=== PATIENT | female | born 1990 | race Caucasian/White ===

== ENCOUNTER 2016-07-25 23:52 | Emergency (ER) | payer OTHER ==
--- NOTE | 2016-07-26 01:12 | ED ORDER SUMMARY ---
..... Patient: JULI REN [facility] VisitID: [id number] [place] [address] 25y, F Registration Date/Time: 07/25/2016 ORDER SHEET Weight: 56.6 kg (stated) Allergies: No Known Drug Allergy GENERAL ORDERS: UA-Culture if indicated Urgent (00:08 07/26/2016 JDeElena R.N. verbal order read back to Elsa Aparicio) (Ack 0:10 AMcQuoid ER Tech1) (0:16 JDeElena R.N.) Urine Urgent (00:08 07/26/2016 JDeElena R.N. verbal order read back to Elsa Aparicio) (Ack 0:10 AMcQuoid ER Tech1) (0:16 JDeElena R.N.) MEDICATION ORDERS: Pyridium PO 100 mg (NOW) (01:08 07/26/2016 Elsa Aparicio) (Ack 1:08 HSoule) (1:34 HSoule) Keflex PO 500 mg (NOW) (01:08 07/26/2016 Elsa Aparicio) (Ack 1:09 HSoule) (1:34 HSoule) IV FLUIDS: ORDER SHEET NOTES: [Electronically signed by Shira Sheriff (02:12 07/26/2016)] [Electronically signed by Avni Marcial Dr. (04:37 07/28/2016)] [Electronically locked/signed by Shira Sheriff (02:12 07/26/2016)]
--- NOTE | 2016-07-26 01:12 | ED CLINICAL REPORT ---
Clinical Report - Physicians/Mid Levels [facility] [address] [place] [address] 07/25/2016 23:51 Patient: JULI REN Time Seen: 0100. Arrived- By private vehicle. Historian- patient. HISTORY OF PRESENT ILLNESS Chief Complaint: DYSURIA. This started past few weeks and still present. It was gradual in onset and has been waxing/waning but is not gone now. The symptoms are described as moderate. The patient has had pain with urination and urgency of urination. The patient has had urinary frequency. Similar symptoms previously: None. Recent medical care: Not recently seen/assessed. REVIEW OF SYSTEMS No skin rash. All systems otherwise negative, except as recorded above. PAST HISTORY See nurses notes. SOCIAL HISTORY Smoker- current status unknown. History of occasional drug use: marijuana. No alcohol use. No recent travel. Is a local resident. ADDITIONAL NOTES The nursing notes have been reviewed. PHYSICAL EXAM Vital Signs: 07/25/2016 23:59 BP: 135/78. HR: 91. RR: 16. O2 saturation: 97%. Temp: 98.2 F. Pain level now: 6/10. Blood pressure normal. Oxygen saturation normal. Appearance: Alert. Oriented X3. No acute distress. HEENT: Normal external inspection. ENT: Pharynx normal. Neck: Neck supple. CVS: Heart sounds normal. Respiratory: No respiratory distress. Breath sounds normal. Chest nontender. Abdomen: Soft and nontender. Bowel sounds normal. No organomegaly. No mass. : External inspection normal. Speculum exam normal. Bimanual exam normal. Skin: Skin warm and dry. Normal skin color. No rash. Normal skin turgor. Extremities: Extremities nontender. No lower extremity edema. LABS, X-RAYS, AND EKG Laboratory Tests: UA-Culture if indicated: (ANASTACIA: 07/26/2016 00:00) ( MsgRcvd 07/26/2016 00:23) Final results Test Result Flag Units (Reference) URINE COLOR YELLOW URINE APPEARANCE CLOUDY URINE GLUCOSE NEGATIVE (NEGATIVE) URINE BILIRUBIN NEGATIVE (NEGATIVE) URINE KETONE NEGATIVE (NEGATIVE) URINE SPECIFIC GRAVITY 1.025 (1.010-1.030) URINE PH 7.0 (5.0-8.0) URINE PROTEIN 1+ (NEGATIVE) URINE UROBILINOGEN 0.2 EU/dL (0.2-1.0) URINE NITRITE NEGATIVE (NEGATIVE) URINE BLOOD TRACE-INTACT (NEGATIVE) URINE LEUK ESTERASE POSITIVE (NEGATIVE) URINE RBC rbc/hpf (0-1) UNABLE TO ENUMERATE, ALL ALMONTE PACKED WITH WHITE BLOODCELLS URINE WBC >100 wbc/hpf (0-1) URINE EPITHELIAL CELLS 3-5 EPI/hpf (0-5) URINE BACTERIA MANY (4+) (NONE SEEN) URINE COMMENT CULTURE INDICATED URINE CULTURES ARE SET-UP BASED ON THE FOLLOWING CRITERIA:POSITIVE NITRITEPOSITIVE LEUKOCYTE ESTERASEGREATER THAN 10 WHITE BLOOD CELLSMODERATE (2+) OR GREATER BACTERIA Urine: (ANASTACIA: 07/26/2016 00:00) ( [facility] 00:17) Final results Test Result Flag Units (Reference) URINE NEGATIVE Culture, Urine: (NAASTACIA: 07/26/2016 00:00) ( [facility] [place] 07/27/[place] 10:11) IP Test Result Flag Units (Reference) CULTURE, URINE DATE: 07/27/16 PRELIM REPORT: PRELIMINARY REPORT #1 -- GNR QUANTITATIVE URINE GROWTH: GREATER THAN 100,000 CFU/mL ID AND SENS TO FOLLOW: IDENTIFICATION AND SENSITIVITY TO FOLLOW . PROGRESS AND PROCEDURES Course of Care: The patient is a pleasant 25-year-old female presenting for evaluation of dysuria. At this time differential diagnosis is likely urinary tract infection. Urine test as well as urinalysis has been ordered. Patient will likely require antibiotics. Patient is agreeable to treatment plan. Offers a pain medication of beengiven however patient declines at this time. Patient's new contact number The bases report was [place] for significant urine tract infection. At about accident providedpar systemic involvement at this time. Patient is a good outpatient candidate. I discussed patient workup. Emergency department as well as diagnosis, home care, follow-up, and return precautions were all questions have been answered. The patient expressed understanding of these instructions and was agreeable to them. Disposition: Discharged. Condition: good. CLINICAL IMPRESSION 07/25/2016 23:59 BP: 135/78. HR: 91. RR: 16. O2 saturation: 97%. Temp: 98.2 F. Pain level now: 6/10. Oxygen saturation normal. Acute urinary tract infection. INSTRUCTIONS Warnings: GENERAL WARNINGS: Return or contact your physician immediately if your condition worsens or changes unexpectedly, if not improving as expected, or if other problems arise. Specifically return if pain, vomiting, bleeding, breathing difficulty or fever. Your Current Medications: CONTINUE TAKING THE FOLLOWING MEDICATIONS: None*. Prescription Medications: Pyridium 100 mg: take 1 orally every 8 hours for 3 days as needed for urinary problems. Dispense ten (10). No refill. Substitution is permissible. Cephalexin 500 mg: take 1 capsule orally every 8 hours for 5 days. No refill. (disp 15 caps) OTC Medications: Motrin (available over the counter): take according to label instructions. Follow-up: Return to the emergency department as needed. Follow up with your doctor in three days. Reason for referral: recheck today's concerns. Summary of care provided to patient via paper. Screening today revealed the patient's blood pressure to be in the normal range. The patient should follow up with a primary care provider for blood pressure management. Understanding of the discharge instructions verbalized by patient. (Electronically signed by Avni Marcial Dr. 07/28/2016 4:37)
--- NOTE | 2016-07-26 01:12 | ED ORDER SUMMARY ---
..... Patient: JULI REN OrderSheet [facility] VisitID: [id number] [place] [address] 25y, F Registration Date/Time: 07/25/2016 ORDER SHEET Weight: 56.6 kg (stated) Allergies: No Known Drug Allergy GENERAL ORDERS: UA-Culture if indicated Urgent (00:08 07/26/2016 JDeElena R.N. verbal order read back to Elsa Aparicio) (Ack 0:10 AMcQuoid ER Tech1) (0:16 JDeElena R.N.) Urine Urgent (00:08 07/26/2016 JDeElena R.N. verbal order read back to Elsa Aparicio) (Ack 0:10 AMcQuoid ER Tech1) (0:16 JDeElena R.N.) MEDICATION ORDERS: Pyridium PO 100 mg (NOW) (01:08 07/26/2016 Elsa Aparicio) (Ack 1:08 HSoule) (1:34 HSoule) Keflex PO 500 mg (NOW) (01:08 07/26/2016 Elsa Aparicio) (Ack 1:09 HSoule) (1:34 HSoule) IV FLUIDS: ORDER SHEET NOTES: [Electronically signed by Shira Sheriff (02:12 07/26/2016)] [Electronically signed by Avni Marcial Dr. (04:37 07/28/2016)] [Electronically locked/signed by Shira Sheriff (02:12 07/26/2016)]
--- NOTE | 2016-07-26 01:12 | ED NURSING NOTES ---
Clinical Report - Nurses [facility] [address] [place] [address] 07/25/2016 23:51 Patient: JULI REN TRIAGE Triage time 23:59. Acuity: LEVEL 4. Chief Complaint: URGENCY and (Juli reports she was seen and tx for a UTI about 1 month ago but it has gotten worse; she says her symptoms started out as urgency but now it schaefer and urgency is worse. Unable to recall recent antbx.). Alert. No acute distress. SEPSIS SCREEN: Sepsis Screen: negative. Negative (no infection suspected/documented). --00:07 Jose Matson R.N. 23:59 07/25/16. BP: 135/78 (regular adult cuff) taken on the left arm, via an automated monitor, while sitting. HR: 91 (normal rate). RR: 16 (regular, unlabored and normal). O2 saturation: 97% on room air. Temp: 98.2 F. Pain level now: 10/11. --00:07 Jose Matson R.N. Weight: 56.6 kg stated. Height/Length: 64 inches Per Patient. BMI: 21.4. --00:04 Jose Matson R.N. Medications None. --00:07 Jose Matson R.N. Medication/allergy information source: the patient. --00:07 Jose Matson R.N. Allergies No Known Drug Allergy. --00:07 Jose Matson R.N. History Arrived by private vehicle. Historian: patient. Accompanied by spouse. Primary physician (None). The patient has had difficulty with urination. No flank pain, fever, abdominal pain, diarrhea or nausea. No vomiting or hematuria. PAST MEDICAL HX: Last normal menstrual period- Inserted last August. Uses an intrauterine device. Denies current . SOCIAL HX: Current every day heavy tobacco smoker (cigarette)- less than 1 pack per day. History of occasional drug use: marijuana. Recently used drugs yesterday. No alcohol use. She has not traveled outside the [place] The patient was not exposed to MRSA. ABUSE ASSESSMENT: Abuse assessment: The patient was asked "Do you feel safe in your home?" and "Has anyone hurt you or threatened to hurt you?". No report of abuse. SELF HARM ASSESSMENT: A self harm assessment was performed. The patient answered "no" to the question "Do you have thoughts of harming or killing yourself?" and "Have you recently had thoughts about harming or killing others?". FALL RISK ASSESSMENT: Fall risk assessment completed. No fall risk identified. NUTRITIONAL RISK ASSESSMENT: The nutritional risk assessment revealed no deficiencies. FUNCTIONAL ASSESSMENT: Functional assessment: no impairments noted. LEARNING NEEDS ASSESSMENT: The learning needs assessment revealed no barriers. SKIN INTEGRITY ASSESSMENT: Skin integrity risk assessment completed. No skin integrity risk identified. --00:07 Jose Matson R.N. PROBLEMS: UTI - Urinary Tract Infection. . --00:07 Jose Matson R.N. Assessment GENERAL / NEURO / PSYCH: Alert. Oriented X 4. Appears in no acute distress. Nakita Coma Scale: 15- eyes open spontaneously (4); best verbal response- oriented x 4 (5); best motor response- obeys commands (6). Patient appears calm and cooperative. RESPIRATORY: Respirations not labored. SKIN: Skin is warm and dry. --00:07 Jose Matson R.N. Interventions ID band on patient. To treatment room. --00:07 Jose Matson R.N. PHYSICAL ASSESSMENT Ambulatory to room. GENERAL / NEURO / PSYCH: Alert. Oriented X 4. Appears in no acute distress. RESPIRATORY: No respiratory distress. Respirations not labored. Breath sounds within normal limits. CVS: Heart sounds within normal limits. Pulses: right radial 2+ and left radial 2+. Capillary refill less than 2 seconds. GI / : Abdomen soft and nontender. Bowel sounds within normal limits. SKIN: Skin is warm and dry. --00:17 Jose Matson R.N. NURSING PROGRESS NOTES The initial plan of care for this patient has been created This plan of care was discussed with the patient. Reassurance given to the patient. Two patient identifiers checked. Call light placed in reach. Side rails up x 1. Bed placed in lowest position. Brakes of bed on. Patient ready for evaluation- ED physician notified. --00:08 Jose Matson R.N. Patient ID band checked for patient name and birthdate: patient confirmed. Instructions provided to collect clean catch urine and patient verbalized understanding. Clean catch urine collected with return of varun-colored clear urine; sample sent to lab for urinalysis and HCG. Specimen labeled in the presence of the patient. --00:08 Jose Matson R.N. 01:34 07/26/2016 Pyridium (Phenazopyridine HCl) PO Tablets 100 mg given. Allergies verified and confirmed 5 rights. --01:34 Shira Sheriff 01:34 07/26/2016 Keflex (Cephalexin) PO Capsules 500 mg given. Allergies verified and confirmed 5 rights. --:34 Shira Sheriff. DISPOSITION / DISCHARGE 01:36 07/26/16. Condition at departure: stable. The goals identified in the patient's plan of care were met. No learning barriers present. Discharge instructions provided and reviewed with the patient. Reviewed medication(s) side effects, precautions, dosing and course information. Prescription(s) given to the patient. Reviewed need for increased fluid intake. Patient verbalized understanding. Written instructions provided in Yoruba. ( Follow up with PCP in three days. Increase fluids. Return if symptoms worsen. Patient has no questions or concerns at this time.). The patient was discharged by the physician. She was discharged home and accompanied by material handling equipment stevedore. She left the Emergency Department ambulatory and via private vehicle. Punchboard Stuffer driving. FALL RISK ASSESSMENT: Fall risk assessment completed. No fall risk identified. --01:36 Shira Sheriff 01:34 07/26/16. BP: 111/56. HR: 98. RR: 20. O2 saturation: 98% on room air. Temp: 97.7 F (oral). Pain level now: 0/10. --01:36 Shira Sheriff. Locked/Released at 07/26/2016 2:12 by Shira Sheriff,
--- NOTE | 2016-07-26 01:12 | ED CLINICAL REPORT ---
Clinical Report - Physicians/Mid Levels [facility] [address] [place] [address] 07/25/2016 23:51 Patient: JULI REN Time Seen: 0100. Arrived- By private vehicle. Historian- patient. HISTORY OF PRESENT ILLNESS Chief Complaint: DYSURIA. This started past few weeks and still present. It was gradual in onset and has been waxing/waning but is not gone now. The symptoms are described as moderate. The patient has had pain with urination and urgency of urination. The patient has had urinary frequency. Similar symptoms previously: None. Recent medical care: Not recently seen/assessed. REVIEW OF SYSTEMS No skin rash. All systems otherwise negative, except as recorded above. PAST HISTORY See nurses notes. SOCIAL HISTORY Smoker- current status unknown. History of occasional drug use: marijuana. No alcohol use. No recent travel. Is a local resident. ADDITIONAL NOTES The nursing notes have been reviewed. PHYSICAL EXAM Vital Signs: 07/25/2016 23:59 BP: 135/78. HR: 91. RR: 16. O2 saturation: 97%. Temp: 98.2 F. Pain level now: 6/10. Blood pressure normal. Oxygen saturation normal. Appearance: Alert. Oriented X3. No acute distress. HEENT: Normal external inspection. ENT: Pharynx normal. Neck: Neck supple. CVS: Heart sounds normal. Respiratory: No respiratory distress. Breath sounds normal. Chest nontender. Abdomen: Soft and nontender. Bowel sounds normal. No organomegaly. No mass. : External inspection normal. Speculum exam normal. Bimanual exam normal. Skin: Skin warm and dry. Normal skin color. No rash. Normal skin turgor. Extremities: Extremities nontender. No lower extremity edema. LABS, X-RAYS, AND EKG Laboratory Tests: UA-Culture if indicated: (ANASTACIA: 07/26/2016 00:00) ( MsgRcvd 07/26/2016 00:23) Final results Test Result Flag Units (Reference) URINE COLOR YELLOW URINE APPEARANCE CLOUDY URINE GLUCOSE NEGATIVE (NEGATIVE) URINE BILIRUBIN NEGATIVE (NEGATIVE) URINE KETONE NEGATIVE (NEGATIVE) URINE SPECIFIC GRAVITY 1.025 (1.010-1.030) URINE PH 7.0 (5.0-8.0) URINE PROTEIN 1+ (NEGATIVE) URINE UROBILINOGEN 0.2 EU/dL (0.2-1.0) URINE NITRITE NEGATIVE (NEGATIVE) URINE BLOOD TRACE-INTACT (NEGATIVE) URINE LEUK ESTERASE POSITIVE (NEGATIVE) URINE RBC rbc/hpf (0-1) UNABLE TO ENUMERATE, ALL ALMONTE PACKED WITH WHITE BLOODCELLS URINE WBC >100 wbc/hpf (0-1) URINE EPITHELIAL CELLS 3-5 EPI/hpf (0-5) URINE BACTERIA MANY (4+) (NONE SEEN) URINE COMMENT CULTURE INDICATED URINE CULTURES ARE SET-UP BASED ON THE FOLLOWING CRITERIA:POSITIVE NITRITEPOSITIVE LEUKOCYTE ESTERASEGREATER THAN 10 WHITE BLOOD CELLSMODERATE (2+) OR GREATER BACTERIA Urine: (ANASTACIA: 07/26/2016 00:00) ( [facility] [place]:17) Final results Test Result Flag Units (Reference) URINE NEGATIVE Culture, Urine: (ANASTACIA: 07/26/2016 00:00) ( [facility] [place]:11[place] IP Test Result Flag Units (Reference) CULTURE, URINE DATE: 07/27/16 PRELIM REPORT: PRELIMINARY REPORT #1 -- GNR QUANTITATIVE URINE GROWTH: GREATER THAN 100,000 CFU/mL ID AND SENS TO FOLLOW: IDENTIFICATION AND SENSITIVITY TO FOLLOW . PROGRESS AND PROCEDURES Course of Care: The patient is a pleasant 25-year-old female presenting for evaluation of dysuria. At this time differential diagnosis is likely urinary tract infection. Urine test as well as urinalysis has been ordered. Patient will likely require antibiotics. Patient is agreeable to treatment plan. Offers a pain medication of beengiven however patient declines at this time. Patient's new contact number The bases report was [place] for significant urine tract infection. At about accident providedpar systemic involvement at this time. Patient is a good outpatient candidate. I discussed patient workup. Emergency department as well as diagnosis, home care, follow-up, and return precautions were all questions have been answered. The patient expressed understanding of these instructions and was agreeable to them. Disposition: Discharged. Condition: good. CLINICAL IMPRESSION 07/25/2016 23:59 BP: 135/78. HR: 91. RR: 16. O2 saturation: 97%. Temp: 98.2 F. Pain level now: 6/10. Oxygen saturation normal. Acute urinary tract infection. INSTRUCTIONS Warnings: GENERAL WARNINGS: Return or contact your physician immediately if your condition worsens or changes unexpectedly, if not improving as expected, or if other problems arise. Specifically return if pain, vomiting, bleeding, breathing difficulty or fever. Your Current Medications: CONTINUE TAKING THE FOLLOWING MEDICATIONS: None*. Prescription Medications: Pyridium 100 mg: take 1 orally every 8 hours for 3 days as needed for urinary problems. Dispense ten (10). No refill. Substitution is permissible. Cephalexin 500 mg: take 1 capsule orally every 8 hours for 5 days. No refill. (disp 15 caps) OTC Medications: Motrin (available over the counter): take according to label instructions. Follow-up: Return to the emergency department as needed. Follow up with your doctor in three days. Reason for referral: recheck today's concerns. Summary of care provided to patient via paper. Screening today revealed the patient's blood pressure to be in the normal range. The patient should follow up with a primary care provider for blood pressure management. Understanding of the discharge instructions verbalized by patient. (Electronically signed by Avni Marcial Dr. 07/28/2016 4:37)
--- NOTE | 2016-07-28 04:37 | ED MAR SUMMARY ---
..... Medication Administration Record [facility] [address] [place] [place] [address] Patient: JULI REN Visit ID: [id number] 25y, F Weight: 56.6 kg Height/Length: 64 in BMI: 21.4 ALLERGIES: No Known Drug Allergy Given 07/26/2016 Shira Sheriff, Medication Administered: PYRIDIUM [PO] (PHENAZOPYRIDINE HCL), Dose: 100 mg Tablets PO. Medication Ordered: Pyridium PO 100 mg (NOW). Given 07/26/2016 Shira Sheriff, Medication Administered: KEFLEX [PO] (CEPHALEXIN), Dose: 500 mg Capsules PO. Medication Ordered: Keflex PO 500 mg (NOW).
--- NOTE | 2016-07-28 04:37 | ED DISCHARGE INSTRUCTIONS ---
Patient: JULI REN General Instructions [facility] VisitID: [id number] [place] [address] 25y, F Registration Date/Time: 07/25/2016 07/25/2016 23:59 BP: 135/78. HR: 91. RR: 16. O2 saturation: 97%. Temp: 98.2 F. Pain level now: 6/10. Oxygen saturation normal. Acute urinary tract infection. INSTRUCTIONS Warnings: GENERAL WARNINGS: Return or contact your physician immediately if your condition worsens or changes unexpectedly, if not improving as expected, or if other problems arise. Specifically return if pain, vomiting, bleeding, breathing difficulty or fever. Your Current Medications: CONTINUE TAKING THE FOLLOWING MEDICATIONS: None*. Prescription Medications: Pyridium 100 mg: take 1 orally every 8 hours for 3 days as needed for urinary problems. Dispense ten (10). No refill. Substitution is permissible. Cephalexin 500 mg: take 1 capsule orally every 8 hours for 5 days. No refill. (disp 15 caps) OTC Medications: Motrin (available over the counter): take according to label instructions. Follow-up: Return to the emergency department as needed. Follow up with your doctor in three days. Reason for referral: recheck today's concerns. Summary of care provided to patient via paper. Screening today revealed the patient's blood pressure to be in the normal range. The patient should follow up with a primary care provider for blood pressure management. Understanding of the discharge instructions verbalized by patient. ADDITIONAL INFORMATION Bladder Infection,Female (Adult) A bladder infection ("cystitis" or "UTI") usually causes a constant urge to urinate and a burning when passing urine. Urine may be cloudy, smelly or dark. There may be pain in the lower abdomen. A bladder infection occurs when bacteria from the vaginal area enter the bladder opening (urethra). This can occur from sexual intercourse, wearing tight clothing, dehydration and other factors. Home Care: Drink lots of fluids (at least 6-8 glasses a day, unless you must restrict fluids for other medical reasons). This will force the medicine into your urinary system and flush the bacteria out of your body. Avoid sexual intercourse until your symptoms are gone. Avoid caffeine, alcohol and spicy foods. These can irritate the bladder. A bladder infection is treated with antibiotics. You may also be given Pyridium (generic = phenazopyridine) to reduce the burning sensation. This medicine will cause your urine to become a bright orange color. The orange urine may stain clothing. You may wear a pad or panty-liner to protect clothing. Preventing Future Infections: Always wipe from front to back after a bowel movement. Keep the genital area clean and dry. Drink plenty of fluids each day to avoid dehydration. Both sexual partners should wash before intercourse. Urinate right after intercourse to flush out the bladder. Wear cotton underwear and cotton-lined panty hose; avoid tight-fitting pants. If you are on control pills and are having frequent bladder infections, discuss with your doctor. Follow Up: Return to this facility or see your doctor if ALL symptoms are not gone after three days of treatment. Get Prompt Medical Attention if any of the following occur: Fever of 100.4F (38C) or higher, or as directed by your healthcare provider No improvement by the third day of treatment Increasing back or abdominal pain Repeated vomiting; unable to keep medicine down Weakness, dizziness or fainting Vaginal discharge Pain, redness or swelling in the labia (outer vaginal area) Phenazopyridine Hydrochloride Oral tablet What is this medicine? PHENAZOPYRIDINE (fen az oh PEER i torsten) is a pain reliever. It is used to stop the pain, burning, or discomfort caused by infection or irritation of the urinary tract. This medicine is not an antibiotic. It will not cure a urinary tract infection. How should I use this medicine? Take this medicine by mouth with a glass of water. Follow the directions on the prescription label. Take after meals. Take your doses at regular intervals. Do not take your medicine more often than directed. Do not skip doses or stop your medicine early even if you feel better. Do not stop taking except on your doctor's advice. Talk to your night shift regarding the use of this medicine in children. Special care may be needed. What side effects may I notice from receiving this medicine? Side effects that you should report to your doctor or health care assistant as soon as possible: allergic reactions like skin rash, itching or hives, swelling of the face, lips, or tongue blue or purple color of the skin difficulty breathing fever less urine unusual bleeding, bruising unusual tired, weak vomiting yellowing of the eyes or skin Side effects that usually do not require medical attention (report to your doctor or health care assistant if they continue or are bothersome): dark urine headache stomach upset What may interact with this medicine? Interactions are not expected. What if I miss a dose? If you miss a dose, take it as soon as you can. If it is almost time for your next dose, take only that dose. Do not take double or extra doses. Where should I keep my medicine? Keep out of the reach of children. Store at room temperature between 15 and 30 degrees C (59 and 86 degrees F). Protect from light and moisture. Throw away any unused medicine after the expiration date. What should I tell my health care provider before I take this medicine? They need to know if you have any of these conditions: vzniurq-0-zelkpoovf dehydrogenase (G6PD) deficiency kidney disease an unusual or allergic reaction to phenazopyridine, other medicines, foods, dyes, or preservatives or trying to get breast-feeding What should I watch for while using this medicine? Tell your doctor or health care assistant if your symptoms do not improve or if they get worse. This medicine colors body fluids red. This effect is harmless and will go away after you are done taking the medicine. It will change urine to an dark orange or red color. The red color may stain clothing. Soft contact lenses may become permanently stained. It is best not to wear soft contact lenses while taking this medicine. If you are diabetic you may get a false positive result for sugar in your urine. Talk to your health care provider. Cephalexin Monohydrate Oral tablet What is this medicine? CEPHALEXIN (sef a KHANH in) is a cephalosporin antibiotic. It is used to treat certain kinds of bacterial infections It will not work for colds, flu, or other viral infections. How should I use this medicine? Take this medicine by mouth with a full glass of water. Follow the directions on the prescription label. This medicine can be taken with or without food. Take your medicine at regular intervals. Do not take your medicine more often than directed. Take all of your medicine as directed even if you think you are better. Do not skip doses or stop your medicine early. Talk to your night shift regarding the use of this medicine in children. While this drug may be prescribed for selected conditions, precautions do apply. What side effects may I notice from receiving this medicine? Side effects that you should report to your doctor or health care assistant as soon as possible: allergic reactions like skin rash, itching or hives, swelling of the face, lips, or tongue breathing problems pain or trouble passing urine redness, blistering, peeling or loosening of the skin, including inside the mouth severe or watery diarrhea unusually weak or tired yellowing of the eyes, skin Side effects that usually do not require medical attention (report to your doctor or health care assistant if they continue or are bothersome): gas or heartburn genital or anal irritation headache joint or muscle pain nausea, vomiting What may interact with this medicine? probenecid some other antibiotics What if I miss a dose? If you miss a dose, take it as soon as you can. If it is almost time for your next dose, take only that dose. Do not take double or extra doses. There should be at least 4 to 6 hours between doses. Where should I keep my medicine? Keep out of the reach of children. Store at room temperature between 59 and 86 degrees F (15 and 30 degrees C). Throw away any unused medicine after the expiration date. What should I tell my health care provider before I take this medicine? They need to know if you have any of these conditions: kidney disease stomach or intestine problems, especially colitis an unusual or allergic reaction to cephalexin, other cephalosporins, penicillins, other antibiotics, medicines, foods, dyes or preservatives or trying to get breast-feeding What should I watch for while using this medicine? Tell your doctor or health care assistant if your symptoms do not begin to improve in a few days. Do not treat diarrhea with over the counter products. Contact your doctor if you have diarrhea that lasts more than 2 days or if it is severe and watery. If you have diabetes, you may get a false-positive result for sugar in your urine. Check with your doctor or health care assistant. You have been given the following additional information: Bladder Infection, Female (Adult) Phenazopyridine Hydrochloride Oral tablet Cephalexin Monohydrate Oral tablet (Electronically signed by Avni Marcial Dr. 07/28/2016 4:37)
--- NOTE | 2016-07-28 04:37 | ED MAR SUMMARY ---
..... Medication Administration Record [facility] [address] [place] [address] Patient: JULI REN Visit ID: [id number] 25y, F Weight: 56.6 kg Height/Length: 64 in BMI: 21.4 ALLERGIES: No Known Drug Allergy Given 07/26/2016 Shira Sheriff, Medication Administered: PYRIDIUM [PO] (PHENAZOPYRIDINE HCL), Dose: 100 mg Tablets PO. Medication Ordered: Pyridium PO 100 mg (NOW). Given 07/26/2016 Shira Sheriff, Medication Administered: KEFLEX [PO] (CEPHALEXIN), Dose: 500 mg Capsules PO. Medication Ordered: Keflex PO 500 mg (NOW).
--- NOTE | 2016-07-28 04:37 | ED DISCHARGE INSTRUCTIONS ---
Patient: JULI REN General Instructions [facility] VisitID: [id number] [place] [address] 25y, F Registration Date/Time: 07/25/2016 07/25/2016 23:59 BP: 135/78. HR: 91. RR: 16. O2 saturation: 97%. Temp: 98.2 F. Pain level now: 6/10. Oxygen saturation normal. Acute urinary tract infection. INSTRUCTIONS Warnings: GENERAL WARNINGS: Return or contact your physician immediately if your condition worsens or changes unexpectedly, if not improving as expected, or if other problems arise. Specifically return if pain, vomiting, bleeding, breathing difficulty or fever. Your Current Medications: CONTINUE TAKING THE FOLLOWING MEDICATIONS: None*. Prescription Medications: Pyridium 100 mg: take 1 orally every 8 hours for 3 days as needed for urinary problems. Dispense ten (10). No refill. Substitution is permissible. Cephalexin 500 mg: take 1 capsule orally every 8 hours for 5 days. No refill. (disp 15 caps) OTC Medications: Motrin (available over the counter): take according to label instructions. Follow-up: Return to the emergency department as needed. Follow up with your doctor in three days. Reason for referral: recheck today's concerns. Summary of care provided to patient via paper. Screening today revealed the patient's blood pressure to be in the normal range. The patient should follow up with a primary care provider for blood pressure management. Understanding of the discharge instructions verbalized by patient. ADDITIONAL INFORMATION Bladder Infection,Female (Adult) A bladder infection ("cystitis" or "UTI") usually causes a constant urge to urinate and a burning when passing urine. Urine may be cloudy, smelly or dark. There may be pain in the lower abdomen. A bladder infection occurs when bacteria from the vaginal area enter the bladder opening (urethra). This can occur from sexual intercourse, wearing tight clothing, dehydration and other factors. Home Care: Drink lots of fluids (at least 6-8 glasses a day, unless you must restrict fluids for other medical reasons). This will force the medicine into your urinary system and flush the bacteria out of your body. Avoid sexual intercourse until your symptoms are gone. Avoid caffeine, alcohol and spicy foods. These can irritate the bladder. A bladder infection is treated with antibiotics. You may also be given Pyridium (generic = phenazopyridine) to reduce the burning sensation. This medicine will cause your urine to become a bright orange color. The orange urine may stain clothing. You may wear a pad or panty-liner to protect clothing. Preventing Future Infections: Always wipe from front to back after a bowel movement. Keep the genital area clean and dry. Drink plenty of fluids each day to avoid dehydration. Both sexual partners should wash before intercourse. Urinate right after intercourse to flush out the bladder. Wear cotton underwear and cotton-lined panty hose; avoid tight-fitting pants. If you are on control pills and are having frequent bladder infections, discuss with your doctor. Follow Up: Return to this facility or see your doctor if ALL symptoms are not gone after three days of treatment. Get Prompt Medical Attention if any of the following occur: Fever of 100.4F (38C) or higher, or as directed by your healthcare provider No improvement by the third day of treatment Increasing back or abdominal pain Repeated vomiting; unable to keep medicine down Weakness, dizziness or fainting Vaginal discharge Pain, redness or swelling in the labia (outer vaginal area) Phenazopyridine Hydrochloride Oral tablet What is this medicine? PHENAZOPYRIDINE (fen az oh PEER i torsten) is a pain reliever. It is used to stop the pain, burning, or discomfort caused by infection or irritation of the urinary tract. This medicine is not an antibiotic. It will not cure a urinary tract infection. How should I use this medicine? Take this medicine by mouth with a glass of water. Follow the directions on the prescription label. Take after meals. Take your doses at regular intervals. Do not take your medicine more often than directed. Do not skip doses or stop your medicine early even if you feel better. Do not stop taking except on your doctor's advice. Talk to your direct sales professional regarding the use of this medicine in children. Special care may be needed. What side effects may I notice from receiving this medicine? Side effects that you should report to your doctor or health client care representative as soon as possible: allergic reactions like skin rash, itching or hives, swelling of the face, lips, or tongue blue or purple color of the skin difficulty breathing fever less urine unusual bleeding, bruising unusual tired, weak vomiting yellowing of the eyes or skin Side effects that usually do not require medical attention (report to your doctor or health client care representative if they continue or are bothersome): dark urine headache stomach upset What may interact with this medicine? Interactions are not expected. What if I miss a dose? If you miss a dose, take it as soon as you can. If it is almost time for your next dose, take only that dose. Do not take double or extra doses. Where should I keep my medicine? Keep out of the reach of children. Store at room temperature between 15 and 30 degrees C (59 and 86 degrees F). Protect from light and moisture. Throw away any unused medicine after the expiration date. What should I tell my health care provider before I take this medicine? They need to know if you have any of these conditions: gqmfdfy-0-awdeycoch dehydrogenase (G6PD) deficiency kidney disease an unusual or allergic reaction to phenazopyridine, other medicines, foods, dyes, or preservatives or trying to get breast-feeding What should I watch for while using this medicine? Tell your doctor or health client care representative if your symptoms do not improve or if they get worse. This medicine colors body fluids red. This effect is harmless and will go away after you are done taking the medicine. It will change urine to an dark orange or red color. The red color may stain clothing. Soft contact lenses may become permanently stained. It is best not to wear soft contact lenses while taking this medicine. If you are diabetic you may get a false positive result for sugar in your urine. Talk to your health care provider. Cephalexin Monohydrate Oral tablet What is this medicine? CEPHALEXIN (sef a KHANH in) is a cephalosporin antibiotic. It is used to treat certain kinds of bacterial infections It will not work for colds, flu, or other viral infections. How should I use this medicine? Take this medicine by mouth with a full glass of water. Follow the directions on the prescription label. This medicine can be taken with or without food. Take your medicine at regular intervals. Do not take your medicine more often than directed. Take all of your medicine as directed even if you think you are better. Do not skip doses or stop your medicine early. Talk to your direct sales professional regarding the use of this medicine in children. While this drug may be prescribed for selected conditions, precautions do apply. What side effects may I notice from receiving this medicine? Side effects that you should report to your doctor or health client care representative as soon as possible: allergic reactions like skin rash, itching or hives, swelling of the face, lips, or tongue breathing problems pain or trouble passing urine redness, blistering, peeling or loosening of the skin, including inside the mouth severe or watery diarrhea unusually weak or tired yellowing of the eyes, skin Side effects that usually do not require medical attention (report to your doctor or health client care representative if they continue or are bothersome): gas or heartburn genital or anal irritation headache joint or muscle pain nausea, vomiting What may interact with this medicine? probenecid some other antibiotics What if I miss a dose? If you miss a dose, take it as soon as you can. If it is almost time for your next dose, take only that dose. Do not take double or extra doses. There should be at least 4 to 6 hours between doses. Where should I keep my medicine? Keep out of the reach of children. Store at room temperature between 59 and 86 degrees F (15 and 30 degrees C). Throw away any unused medicine after the expiration date. What should I tell my health care provider before I take this medicine? They need to know if you have any of these conditions: kidney disease stomach or intestine problems, especially colitis an unusual or allergic reaction to cephalexin, other cephalosporins, penicillins, other antibiotics, medicines, foods, dyes or preservatives or trying to get breast-feeding What should I watch for while using this medicine? Tell your doctor or health client care representative if your symptoms do not begin to improve in a few days. Do not treat diarrhea with over the counter products. Contact your doctor if you have diarrhea that lasts more than 2 days or if it is severe and watery. If you have diabetes, you may get a false-positive result for sugar in your urine. Check with your doctor or health client care representative. You have been given the following additional information: Bladder Infection, Female (Adult) Phenazopyridine Hydrochloride Oral tablet Cephalexin Monohydrate Oral tablet (Electronically signed by Avni Marcial Dr. 07/28/2016 4:37)
--- NOTE | 2016-07-28 04:38 | ED MED RECONCILIATION SUMMARY ---
Patient: JULI REN Medication Reconciliation Report [facility] VisitID: [id number] [place] [address] 25y, F Registration Date/Time: 07/25/2016 Weight: 56.6 kg Height/Length: 64 in. BMI: 21.4 ALLERGIES: No Known Drug Allergy The patient's Home Medications are listed below: NONE. The source(s) of the original Home Medication information: patient The following Medications were given to the patient in the Emergency Department: Pyridium [PO] PO 100 mg, administered: 07/26/2016 1:34:00 AM Keflex [PO] PO 500 mg, administered: 07/26/2016 1:34:00 AM The following Medications were prescribed to the patient: Motrin (available over the counter): take according to label instructions. -- Avni Marcial Dr. Pyridium 100 mg: take 1 orally every 8 hours for 3 days as needed for urinary problems. Dispense ten (10). No refill. Substitution is permissible. -- Avni Marcial Dr. Cephalexin 500 mg: take 1 capsule orally every 8 hours for 5 days. No refill.(disp 15 caps) -- Avni Marcial Dr.
--- NOTE | 2016-07-28 04:38 | ED MED RECONCILIATION SUMMARY ---
Patient: JULI REN Medication Reconciliation Report [facility] VisitID: [id number] [place] [address] 25y, F Registration Date/Time: 07/25/2016 Weight: 56.6 kg Height/Length: 64 in. BMI: 21.4 ALLERGIES: No Known Drug Allergy The patient's Home Medications are listed below: NONE. The source(s) of the original Home Medication information: patient The following Medications were given to the patient in the Emergency Department: Pyridium [PO] PO 100 mg, administered: 07/26/2016 1:34:00 AM Keflex [PO] PO 500 mg, administered: 07/26/2016 1:34:00 AM The following Medications were prescribed to the patient: Motrin (available over the counter): take according to label instructions. -- Avni Marcial Dr. Pyridium 100 mg: take 1 orally every 8 hours for 3 days as needed for urinary problems. Dispense ten (10). No refill. Substitution is permissible. -- Avni Marcial Dr. Cephalexin 500 mg: take 1 capsule orally every 8 hours for 5 days. No refill.(disp 15 caps) -- Avni Marcial Dr.
== END 2016-07-25 23:53 | disposition home or self-care (01) ==
LOC: ED SRH 23:52
DX: N39.0 Urinary tract infection, site not specified (principal); F17.210 Nicotine dependence, cigarettes, uncomplicated
CPT/HCPCS: 90004; 90148; 90469; 93070

== ENCOUNTER 2016-08-14 21:14 | Emergency (ER) | payer OTHER ==
--- NOTE | 2016-08-14 22:32 | ED ORDER SUMMARY ---
..... Patient: JULI REN OrderSheet [facility] VisitID: [id number] [place] [address] 25y, F Registration Date/Time: 08/14/2016 ORDER SHEET Weight: 58.9 kg (stated) Allergies: No Known Drug Allergy GENERAL ORDERS: Urine Urgent (:08/14/2016 EKoroleva P.A.-C) (Ack 21:38 AMcQuoid ER Tech1) (22:25 HSoule) UA-Culture if indicated Urgent (:33 08/14/2016 EKoroleva P.A.-C) (Ack 21:38 AMcQuoid ER Tech1) (22:25 HSoule) MEDICATION ORDERS: Ceftriaxone IM 250 mg (NOW) (22:16 08/14/2016 EKoroleva P.A.-C) (Ack 22:17 HSoule) (22:25 HSoule) Azithromycin PO 500 mg (NOW) (22:16 08/14/2016 EKoroleva P.A.-C) (Ack 22:17 HSoule) (22:25 HSoule) Macrobid PO 100 mg (NOW) (22:16 08/14/2016 EKoroleva P.A.-C) (Ack 22:17 HSoule) (22:26 HSoule) IV FLUIDS: ORDER SHEET NOTES: [Electronically signed by Estrella Dejesus PNellANell-C (22:50 08/14/2016)] [Electronically signed by Shira Sheriff (23:07 08/14/2016)] [Electronically locked/signed by Shira Sheriff (23:07 08/14/2016)]
--- NOTE | 2016-08-14 22:32 | ED CLINICAL REPORT ---
Clinical Report - Physicians/Mid Levels [facility] [address] [place] [address] 08/14/2016 21:15 [id number] Time Seen: 22:48 Aug 14 2016. Arrived- By private vehicle. HISTORY OF PRESENT ILLNESS Chief Complaint: EXPOSED TO SEXUALLY TRANSMITTED DISEASE. This started today and still present. (Patient does not have any complaints. Denies any vaginal bleeding. Denies any loss of fluid. Patient has had an IUD in place for almost a year, has not had any menses. She has x-ray active, unprotected with her boyfriend, who was recently treated for and had a positive chlamydia test. Patient has not had any discharge. Denies any fevers or any back pain. She denies any vaginal bleeding. Denies any abdominal pain. Denies urgency frequency or dysuria.). REVIEW OF SYSTEMS No nausea or vomiting. All systems otherwise negative, except as recorded above. PAST HISTORY Additional Surgeries: no known surgeries. Medications: None. Allergies: No Known Drug Allergy. SOCIAL HISTORY Light tobacco smoker. History of drug use: marijuana. Not an IV drug user. No alcohol use. ADDITIONAL NOTES The nursing notes have been reviewed. PHYSICAL EXAM Vital Signs: 08/14/2016 21:24 BP: 137/86. HR: 136. RR: 20. O2 saturation: 95%. Temp: 98.2 F. Pain level now: 0/10. Appearance: Alert. HEENT: Normal external inspection. CVS: Heart sounds normal. Respiratory: No respiratory distress. Breath sounds normal. No rales. Abdomen: Soft and nontender. Bowel sounds normal. No abdominal tenderness or distention. Back: Normal external inspection. No CVA tenderness. Skin: Skin warm. Normal skin color. LABS, X-RAYS, AND EKG Laboratory Tests: UA-Culture if indicated: (ANASTACIA: 08/14/2016 21:26) ( MsgRcvd 08/14/2016 22:19) Final results Test Result Flag Units (Reference) URINE COLOR YELLOW URINE APPEARANCE CLOUDY URINE GLUCOSE NEGATIVE (NEGATIVE) URINE BILIRUBIN NEGATIVE (NEGATIVE) URINE KETONE NEGATIVE (NEGATIVE) URINE SPECIFIC GRAVITY >= 1.030 (1.010-1.030) URINE PH 5.5 (5.0-8.0) URINE PROTEIN TRACE (NEGATIVE) URINE UROBILINOGEN 0.2 EU/dL (0.2-1.0) URINE NITRITE POSITIVE (NEGATIVE) URINE BLOOD NEGATIVE (NEGATIVE) URINE LEUK ESTERASE POSITIVE (NEGATIVE) URINE RBC 3-5 rbc/hpf (0-1) URINE WBC 25-50 wbc/hpf (0-1) URINE EPITHELIAL CELLS 3-5 EPI/hpf (0-5) URINE BACTERIA FEW (1+) (NONE SEEN) URINE COMMENT CULTURE INDICATED URINE CULTURES ARE SET-UP BASED ON THE FOLLOWING CRITERIA:POSITIVE NITRITEPOSITIVE LEUKOCYTE ESTERASEGREATER THAN 10 WHITE BLOOD CELLSMODERATE (2+) OR GREATER BACTERIA Urine: (ANASTACIA: 08/14/2016 21:26) ( MsgRcvd 08/14/2016 22:13) Final results Test Result Flag Units (Reference) URINE NEGATIVE . PROGRESS AND PROCEDURES Course of Care: Patient has no complaints. Negative U . Signs of cystitis. Condition will be treated for gonorrhea and chlamydia. First dose of antibiotics for cystitis in the emergency department. Patient is with tachycardia, recently used drugs she reports. Otherwise she is nonseptic appearing. Patient is stable. Physical exam findings are improved. Symptoms better. Patient/family counseled. Disposition: Discharged. Condition: good. CLINICAL IMPRESSION Acute urinary tract infection with cystitis. Sexually transmitted disease. INSTRUCTIONS Drink plenty of fluids. (Address: [address] [place] [id number] ). Prescription Medications: Macrobid 100 mg: take 1 capsule orally every 12 hours. No refill. Substitution is permissible. Follow-up: Follow up with your doctor as needed. (Electronically signed by Estrella Dejesus P.A.-C 08/14/2016 22:50)
--- NOTE | 2016-08-14 22:32 | ED CLINICAL REPORT ---
Clinical Report - Physicians/Mid Levels [facility] [address] [place] [address] 08/14/2016 21:15 [id number] Time Seen: 22:48 Aug 14 2016. Arrived- By private vehicle. HISTORY OF PRESENT ILLNESS Chief Complaint: EXPOSED TO SEXUALLY TRANSMITTED DISEASE. This started today and still present. (Patient does not have any complaints. Denies any vaginal bleeding. Denies any loss of fluid. Patient has had an IUD in place for almost a year, has not had any menses. She has x-ray active, unprotected with her boyfriend, who was recently treated for and had a positive chlamydia test. Patient has not had any discharge. Denies any fevers or any back pain. She denies any vaginal bleeding. Denies any abdominal pain. Denies urgency frequency or dysuria.). REVIEW OF SYSTEMS No nausea or vomiting. All systems otherwise negative, except as recorded above. PAST HISTORY Additional Surgeries: no known surgeries. Medications: None. Allergies: No Known Drug Allergy. SOCIAL HISTORY Light tobacco smoker. History of drug use: marijuana. Not an IV drug user. No alcohol use. ADDITIONAL NOTES The nursing notes have been reviewed. PHYSICAL EXAM Vital Signs: 08/14/2016 21:24 BP: 137/86. HR: 136. RR: 20. O2 saturation: 95%. Temp: 98.2 F. Pain level now: 0/10. Appearance: Alert. HEENT: Normal external inspection. CVS: Heart sounds normal. Respiratory: No respiratory distress. Breath sounds normal. No rales. Abdomen: Soft and nontender. Bowel sounds normal. No abdominal tenderness or distention. Back: Normal external inspection. No CVA tenderness. Skin: Skin warm. Normal skin color. LABS, X-RAYS, AND EKG Laboratory Tests: UA-Culture if indicated: (ANASTACIA: 08/14/2016 21:26) ( MsgRcvd 08/14/2016 22:19) Final results Test Result Flag Units (Reference) URINE COLOR YELLOW URINE APPEARANCE CLOUDY URINE GLUCOSE NEGATIVE (NEGATIVE) URINE BILIRUBIN NEGATIVE (NEGATIVE) URINE KETONE NEGATIVE (NEGATIVE) URINE SPECIFIC GRAVITY >= 1.030 (1.010-1.030) URINE PH 5.5 (5.0-8.0) URINE PROTEIN TRACE (NEGATIVE) URINE UROBILINOGEN 0.2 EU/dL (0.2-1.0) URINE NITRITE POSITIVE (NEGATIVE) URINE BLOOD NEGATIVE (NEGATIVE) URINE LEUK ESTERASE POSITIVE (NEGATIVE) URINE RBC 3-5 rbc/hpf (0-1) URINE WBC 25-50 wbc/hpf (0-1) URINE EPITHELIAL CELLS 3-5 EPI/hpf (0-5) URINE BACTERIA FEW (1+) (NONE SEEN) URINE COMMENT CULTURE INDICATED URINE CULTURES ARE SET-UP BASED ON THE FOLLOWING CRITERIA:POSITIVE NITRITEPOSITIVE LEUKOCYTE ESTERASEGREATER THAN 10 WHITE BLOOD CELLSMODERATE (2+) OR GREATER BACTERIA Urine: (ANASTACIA: 08/14/2016 21:26) ( MsgRcvd 08/14/2016 22:13) Final results Test Result Flag Units (Reference) URINE NEGATIVE . PROGRESS AND PROCEDURES Course of Care: Patient has no complaints. Negative U . Signs of cystitis. Condition will be treated for gonorrhea and chlamydia. First dose of antibiotics for cystitis in the emergency department. Patient is with tachycardia, recently used drugs she reports. Otherwise she is nonseptic appearing. Patient is stable. Physical exam findings are improved. Symptoms better. Patient/family counseled. Disposition: Discharged. Condition: good. CLINICAL IMPRESSION Acute urinary tract infection with cystitis. Sexually transmitted disease. INSTRUCTIONS Drink plenty of fluids. (Address: [address] [place] [id number] ). Prescription Medications: Macrobid 100 mg: take 1 capsule orally every 12 hours. No refill. Substitution is permissible. Follow-up: Follow up with your doctor as needed. (Electronically signed by Estrella Dejesus P.A.-C 08/14/2016 22:50)
--- NOTE | 2016-08-14 22:32 | ED NURSING NOTES ---
Clinical Report - Nurses [place] [place] [address] 08/14/2016 21:15 Patient: JULI REN TRIAGE Triage time 21:24 Aug 14 2016. Acuity: LEVEL 3. Chief Complaint: EXPOSURE TO STD. SEPSIS SCREEN: Sepsis Screen: negative. Negative (no infection suspected/documented). Heart rate greater than 90. JORGE LUIS COMA SCORE: [place] Coma Scale: 15- eyes open spontaneously (4); best verbal response- oriented x 4 (5); best motor response- obeys commands (6). --21:28 Shira Sheriff 21:24 08/14/16. BP: 137/86. HR: 136. RR: 20. O2 saturation: 95% on room air. Temp: 98.2 F (oral). Pain level now: 0/10. --21:28 Shira Sheriff. Weight: 58.9 kg stated. Height/Length: 64 inches Per Patient. BMI: 22.3. --21:27 Shira Sheriff. Medications None. --21:25 Shira Sheriff. Medication/allergy information source: the patient. --21:28 Shira Sheriff. Allergies No Known Drug Allergy. --21:25 Shira Sheriff. History Arrived by private vehicle. Historian: patient. Accompanied by friend. Primary physician (none). ( Patient reports that her boyfriend was diagnosed with Chlamydia and she was told to come in and get evaluated for STD. Patient denies any symptoms.). PAST MEDICAL HX: Immunizations: up-to-date. Uses an intrauterine device. SOCIAL HX: Light tobacco smoker (cigarette)- less than 1/2 a pack per day. History of drug use: marijuana. No alcohol use. No infectious disease exposure. ABUSE ASSESSMENT: No report of abuse. FALL RISK ASSESSMENT: Fall risk assessment completed. No fall risk identified. NUTRITIONAL RISK ASSESSMENT: The nutritional risk assessment revealed no deficiencies. FUNCTIONAL ASSESSMENT: Functional assessment: no impairments noted. LEARNING NEEDS ASSESSMENT: The learning needs assessment revealed no barriers. SKIN INTEGRITY ASSESSMENT: Skin integrity risk assessment completed. No skin integrity risk identified. --21:28 Shira Sheriff. PROBLEMS: UTI - Urinary Tract Infection. . --21:25 Shira Sheriff. ADDITIONAL SURGERIES: no known surgeries. Interventions ID band on patient. To treatment room. --21: Shira Sheriff. PHYSICAL ASSESSMENT Ambulatory to room. GENERAL / NEURO / PSYCH: Alert. Oriented X 4. Appears in no acute distress. HEENT: Mucous membranes are pink. RESPIRATORY: Respirations not labored. CVS: Cardiac rhythm: sinus tachycardia; (135). GI / : Abdomen soft and nontender. No vaginal discharge. SKIN: Skin is warm and dry. --21: Shira Sheriff. NURSING PROGRESS NOTES Pulse oximeter and NIBP monitor placed on patient. Patient gowned. Reassurance given to the patient. Two patient identifiers checked. Call light placed in reach. Side rails up x 1. Bed placed in lowest position. Brakes of bed on. Patient ready for evaluation- chart flagged and ED physician notified. --:29 Shira Sheriff Checked patient name, birthdate and visit number: patient confirmed. Instructions provided to collect clean catch urine and patient verbalized understanding. Clean catch urine collected; sample sent to lab. Specimen labeled in the presence of the patient. --21:29 Jeff Espino 22:25 08/14/2016 Ceftriaxone IM 250 mg with 1% Lidocaine 2.1mL. Given in the right gluteus snow. Allergies verified and confirmed 5 rights. --22:25 Shira Sheriff 22:25 08/14/2016 Azithromycin PO Capsules 500 mg given. Allergies verified and confirmed 5 rights. --22:25 Shira Sheriff 22:26 08/14/2016 Macrobid PO Capsules 100 mg given. Allergies verified and confirmed 5 rights. --22:26 Shira Sheriff. DISPOSITION / DISCHARGE 22:35 08/14/16. Condition at departure: stable. The goals identified in the patient's plan of care were met. No learning barriers present. Discharge instructions provided and reviewed with the patient. Reviewed medication(s) side effects, precautions, dosing and course information. Reviewed need for increased fluid intake. Patient verbalized understanding. Written instructions provided in Welsh. ( Follow up with clinic or PCP in three days. Return if symptoms worsen. Increase your fluids and take antibiotics as directed. Patient verbalized understanding and had no questions at this time.). The patient was discharged by the physician assistant bookkeeper. She was discharged home and accompanied by pricing director. She left the Emergency Department ambulatory and via private vehicle. Senior Account Clerk driving. FALL RISK ASSESSMENT: Fall risk assessment completed. No fall risk identified. --23:05 Shira Sheriff 22:35 08/14/16. BP: 128/88. HR: 105. RR: 20. O2 saturation: 98% on room air. Temp: 98 F (oral). Pain level now: 0/10. --23:05 Shira Sheriff. Locked/Released at 08/14/2016 23:07 by Shira Sheriff,
--- NOTE | 2016-08-14 22:32 | ED ORDER SUMMARY ---
..... Patient: JULI REN OrderSheet [facility] VisitID: [id number] [place] [address] 25y, F Registration Date/Time: 08/14/2016 ORDER SHEET Weight: 58.9 kg (stated) Allergies: No Known Drug Allergy GENERAL ORDERS: Urine Urgent (:08/14/2016 EKoroleva P.A.-C) (Ack 21:38 AMcQuoid ER Tech1) (22:25 HSoule) UA-Culture if indicated Urgent (:33 08/14/2016 EKoroleva P.A.-C) (Ack 21:38 AMcQuoid ER Tech1) (22:25 HSoule) MEDICATION ORDERS: Ceftriaxone IM 250 mg (NOW) (22:16 08/14/2016 EKoroleva P.A.-C) (Ack 22:17 HSoule) (22:25 HSoule) Azithromycin PO 500 mg (NOW) (22:16 08/14/2016 EKoroleva P.A.-C) (Ack 22:17 HSoule) (22:25 HSoule) Macrobid PO 100 mg (NOW) (22:16 08/14/2016 EKoroleva P.A.-C) (Ack 22:17 HSoule) (22:26 HSoule) IV FLUIDS: ORDER SHEET NOTES: [Electronically signed by Estrella Dejesus PNellANell-C (22:50 08/14/2016)] [Electronically signed by Shira Sheriff (23:07 08/14/2016)] [Electronically locked/signed by Shira Sheriff (23:07 08/14/2016)]
--- NOTE | 2016-08-14 22:32 | ED NURSING NOTES ---
Clinical Report - Nurses [address] [place] [address] 08/14/2016 21:15 Patient: JULI REN TRIAGE Triage time 21:24 Aug 14 2016. Acuity: LEVEL 3. Chief Complaint: EXPOSURE TO STD. SEPSIS SCREEN: Sepsis Screen: negative. Negative (no infection suspected/documented). Heart rate greater than 90. JORGE LUIS COMA SCORE: [place] Coma Scale: 15- eyes open spontaneously (4); best verbal response- oriented x 4 (5); best motor response- obeys commands (6). --21:28 Shira Sheriff 21:24 08/14/16. BP: 137/86. HR: 136. RR: 20. O2 saturation: 95% on room air. Temp: 98.2 F (oral). Pain level now: 0/10. --21:28 Shira Sheriff. Weight: 58.9 kg stated. Height/Length: 64 inches Per Patient. BMI: 22.3. --21:27 Shira Sheriff. Medications None. --21:25 Shira Sheriff. Medication/allergy information source: the patient. --21:28 Shira Sheriff. Allergies No Known Drug Allergy. --21:25 Shira Sheriff. History Arrived by private vehicle. Historian: patient. Accompanied by friend. Primary physician (none). ( Patient reports that her boyfriend was diagnosed with Chlamydia and she was told to come in and get evaluated for STD. Patient denies any symptoms.). PAST MEDICAL HX: Immunizations: up-to-date. Uses an intrauterine device. SOCIAL HX: Light tobacco smoker (cigarette)- less than 1/2 a pack per day. History of drug use: marijuana. No alcohol use. No infectious disease exposure. ABUSE ASSESSMENT: No report of abuse. FALL RISK ASSESSMENT: Fall risk assessment completed. No fall risk identified. NUTRITIONAL RISK ASSESSMENT: The nutritional risk assessment revealed no deficiencies. FUNCTIONAL ASSESSMENT: Functional assessment: no impairments noted. LEARNING NEEDS ASSESSMENT: The learning needs assessment revealed no barriers. SKIN INTEGRITY ASSESSMENT: Skin integrity risk assessment completed. No skin integrity risk identified. --21:28 Shira Sheriff. PROBLEMS: UTI - Urinary Tract Infection. . --21:25 Shira Sheriff. ADDITIONAL SURGERIES: no known surgeries. Interventions ID band on patient. To treatment room. --21: Shira Sheriff. PHYSICAL ASSESSMENT Ambulatory to room. GENERAL / NEURO / PSYCH: Alert. Oriented X 4. Appears in no acute distress. HEENT: Mucous membranes are pink. RESPIRATORY: Respirations not labored. CVS: Cardiac rhythm: sinus tachycardia; (135). GI / : Abdomen soft and nontender. No vaginal discharge. SKIN: Skin is warm and dry. --21: Shira Sheriff. NURSING PROGRESS NOTES Pulse oximeter and NIBP monitor placed on patient. Patient gowned. Reassurance given to the patient. Two patient identifiers checked. Call light placed in reach. Side rails up x 1. Bed placed in lowest position. Brakes of bed on. Patient ready for evaluation- chart flagged and ED physician notified. --:29 Shira Sheriff Checked patient name, birthdate and visit number: patient confirmed. Instructions provided to collect clean catch urine and patient verbalized understanding. Clean catch urine collected; sample sent to lab. Specimen labeled in the presence of the patient. --21:29 Jeff Espino 22:25 08/14/2016 Ceftriaxone IM 250 mg with 1% Lidocaine 2.1mL. Given in the right gluteus snow. Allergies verified and confirmed 5 rights. --22:25 Shira Sheriff 22:25 08/14/2016 Azithromycin PO Capsules 500 mg given. Allergies verified and confirmed 5 rights. --22:25 Shira Sheriff 22:26 08/14/2016 Macrobid PO Capsules 100 mg given. Allergies verified and confirmed 5 rights. --22:26 Shira Sheriff. DISPOSITION / DISCHARGE 22:35 08/14/16. Condition at departure: stable. The goals identified in the patient's plan of care were met. No learning barriers present. Discharge instructions provided and reviewed with the patient. Reviewed medication(s) side effects, precautions, dosing and course information. Reviewed need for increased fluid intake. Patient verbalized understanding. Written instructions provided in Faroese. ( Follow up with clinic or PCP in three days. Return if symptoms worsen. Increase your fluids and take antibiotics as directed. Patient verbalized understanding and had no questions at this time.). The patient was discharged by the physician metallurgical laboratory assistant. She was discharged home and accompanied by service learning coordinator. She left the Emergency Department ambulatory and via private vehicle. Log Haul Operator driving. FALL RISK ASSESSMENT: Fall risk assessment completed. No fall risk identified. --23:05 Shira Sheriff 22:35 08/14/16. BP: 128/88. HR: 105. RR: 20. O2 saturation: 98% on room air. Temp: 98 F (oral). Pain level now: 0/10. --23:05 Shira Sheriff. Locked/Released at 08/14/2016 23:07 by Shira Sheriff,
--- NOTE | 2016-08-14 23:07 | ED DISCHARGE INSTRUCTIONS ---
Patient: JULI REN General Instructions [facility] VisitID: [id number] [place] [address] 25y, F Registration Date/Time: 08/14/2016 Acute urinary tract infection with cystitis. Sexually transmitted disease. INSTRUCTIONS Drink plenty of fluids. (Address: [place] [address] ). Prescription Medications: Macrobid 100 mg: take 1 capsule orally every 12 hours. No refill. Substitution is permissible. Follow-up: Follow up with your doctor as needed. ADDITIONAL INFORMATION Bladder Infection,Female (Adult) A bladder infection ("cystitis" or "UTI") usually causes a constant urge to urinate and a burning when passing urine. Urine may be cloudy, smelly or dark. There may be pain in the lower abdomen. A bladder infection occurs when bacteria from the vaginal area enter the bladder opening (urethra). This can occur from sexual intercourse, wearing tight clothing, dehydration and other factors. Home Care: Drink lots of fluids (at least 6-8 glasses a day, unless you must restrict fluids for other medical reasons). This will force the medicine into your urinary system and flush the bacteria out of your body. Avoid sexual intercourse until your symptoms are gone. Avoid caffeine, alcohol and spicy foods. These can irritate the bladder. A bladder infection is treated with antibiotics. You may also be given Pyridium (generic = phenazopyridine) to reduce the burning sensation. This medicine will cause your urine to become a bright orange color. The orange urine may stain clothing. You may wear a pad or panty-liner to protect clothing. Preventing Future Infections: Always wipe from front to back after a bowel movement. Keep the genital area clean and dry. Drink plenty of fluids each day to avoid dehydration. Both sexual partners should wash before intercourse. Urinate right after intercourse to flush out the bladder. Wear cotton underwear and cotton-lined panty hose; avoid tight-fitting pants. If you are on control pills and are having frequent bladder infections, discuss with your doctor. Follow Up: Return to this facility or see your doctor if ALL symptoms are not gone after three days of treatment. Get Prompt Medical Attention if any of the following occur: Fever of 100.4F (38C) or higher, or as directed by your healthcare provider No improvement by the third day of treatment Increasing back or abdominal pain Repeated vomiting; unable to keep medicine down Weakness, dizziness or fainting Vaginal discharge Pain, redness or swelling in the labia (outer vaginal area) STD, (Cervicitis) [Female, Chlamydia Vs Gc: Treated] You have an infection in the cervix (the opening to the uterus). This is due to an infection with a bacteria (either "Chlamydia" or "Gonorrhea"). This is a sexually transmitted disease (STD) and is highly contagious. It is passed by sexual contact with an infected partner. Women with an infection in the cervix, may have no symptoms or only mild symptoms early in the disease. Therefore, it is possible to pass this infection without knowing you have it. When symptoms do occur, they usually appear 2 days to 3 weeks after exposure. There may be a vaginal discharge. There may also be pain or burning when passing urine. If the infection spreads to the Fallopian tubes it causes pelvic inflammatory disease ("PID"). PID causes symptoms of lower abdominal pain and fever. If not treated, Chlamydia or Gonorrhea can cause infertility (unable to have children) by scarring the Fallopian tubes. PID also increases the risk of ectopic in the future. This infection can be treated and cured. A culture test may be taken to confirm the diagnosis. Treatment is with antibiotic medicine. Home Care: Your sexual partner must be treated at the same time, even if there are no symptoms. Your partner should contact their own doctor or go to an urgent care clinic or the Public Health Department to be examined and treated. Avoid sexual activity until both you and your partner have completed all antibiotic medicine, and you have been told by your doctor that you are no longer contagious. Take all medicines until they are finished; otherwise, symptoms may recur. Learn about safe sex practices and use these in the future. The safest sex is with a partner who has tested negative and only has sex with you. Condoms offer protection from spreading some sexually transmitted diseases including Gonorrhea, Chlamydia and HIV, but are not a guarantee. Follow Up with your doctor or as advised by our staff. If a culture test was taken, you may call us in three days for the results, or as directed. Another culture test should be taken 4-6 weeks after treatment to be sure the infection has cleared. Follow up with your doctor or the Public Health Department for complete STD screening, including HIV testing. For more information about STD's, contact the National STD Hotline: . Get Prompt Medical Attention if any of the following occur: No improvement after three days of treatment New or increasing lower abdominal pain or back pain Unexpected vaginal bleeding Weakness, dizziness or fainting Repeated vomiting Inability to urinate due to pain Rash or joint pain Painful open sores around the outer vagina Enlarged painful lymph nodes (lumps) in the groin Nitrofurantoin, Nitrofurantoin, Macrocrystalline Oral capsule What is this medicine? NITROFURANTOIN (giovanni ap gallegos AN toyn) is an antibiotic. It is used to treat urinary tract infections. How should I use this medicine? Take this medicine by mouth with a glass of water. Follow the directions on the prescription label. Take this medicine with food or milk. Take your doses at regular intervals. Do not take your medicine more often than directed. Do not stop taking except on your doctor's advice. Talk to your cottonseed meat presser regarding the use of this medicine in children. While this drug may be prescribed for selected conditions, precautions do apply. What side effects may I notice from receiving this medicine? Side effects that you should report to your doctor or health respiratory care technician as soon as possible: allergic reactions like skin rash or hives, swelling of the face, lips, or tongue chest pain cough difficulty breathing dizziness, drowsiness fever or infection joint aches or pains pale or blue-tinted skin redness, blistering, peeling or loosening of the skin, including inside the mouth tingling, burning, pain, or numbness in hands or feet unusual bleeding or bruising unusually weak or tired yellowing of eyes or skin Side effects that usually do not require medical attention (report to your doctor or health respiratory care technician if they continue or are bothersome): dark urine diarrhea headache loss of appetite nausea or vomiting temporary hair loss What may interact with this medicine? antacids containing magnesium trisilicate probenecid quinolone antibiotics like ciprofloxacin, lomefloxacin, norfloxacin and ofloxacin sulfinpyrazone What if I miss a dose? If you miss a dose, take it as soon as you can. If it is almost time for your next dose, take only that dose. Do not take double or extra doses. Where should I keep my medicine? Keep out of the reach of children. Store at room temperature between 15 and 30 degrees C (59 and 86 degrees F). Protect from light. Throw away any unused medicine after the expiration date. What should I tell my health care provider before I take this medicine? They need to know if you have any of these conditions: anemia diabetes rvuvdwu-[id number] dehydrogenase deficiency kidney disease liver disease lung disease other chronic illness an unusual or allergic reaction to nitrofurantoin, other antibiotics, other medicines, foods, dyes or preservatives or trying to get breast-feeding What should I watch for while using this medicine? Tell your doctor or health respiratory care technician if your symptoms do not improve or if you get new symptoms. Drink several glasses of water a day. If you are taking this medicine for a long time, visit your doctor for regular checks on your progress. If you are diabetic, you may get a false positive result for sugar in your urine with certain brands of urine tests. Check with your doctor. You have been given the following additional information: Bladder Infection, Female (Adult) Cervicitis (STD), Treated Nitrofurantoin, Nitrofurantoin, Macrocrystalline Oral capsule (Electronically signed by Estrella Dejesus P.A.-C 08/14/2016 22:50)
--- NOTE | 2016-08-14 23:07 | ED DISCHARGE INSTRUCTIONS ---
Patient: JULI REN General Instructions [facility] VisitID: [id number] [place] [address] 25y, F Registration Date/Time: 08/14/2016 Acute urinary tract infection with cystitis. Sexually transmitted disease. INSTRUCTIONS Drink plenty of fluids. (Address: [place] [address] ). Prescription Medications: Macrobid 100 mg: take 1 capsule orally every 12 hours. No refill. Substitution is permissible. Follow-up: Follow up with your doctor as needed. ADDITIONAL INFORMATION Bladder Infection,Female (Adult) A bladder infection ("cystitis" or "UTI") usually causes a constant urge to urinate and a burning when passing urine. Urine may be cloudy, smelly or dark. There may be pain in the lower abdomen. A bladder infection occurs when bacteria from the vaginal area enter the bladder opening (urethra). This can occur from sexual intercourse, wearing tight clothing, dehydration and other factors. Home Care: Drink lots of fluids (at least 6-8 glasses a day, unless you must restrict fluids for other medical reasons). This will force the medicine into your urinary system and flush the bacteria out of your body. Avoid sexual intercourse until your symptoms are gone. Avoid caffeine, alcohol and spicy foods. These can irritate the bladder. A bladder infection is treated with antibiotics. You may also be given Pyridium (generic = phenazopyridine) to reduce the burning sensation. This medicine will cause your urine to become a bright orange color. The orange urine may stain clothing. You may wear a pad or panty-liner to protect clothing. Preventing Future Infections: Always wipe from front to back after a bowel movement. Keep the genital area clean and dry. Drink plenty of fluids each day to avoid dehydration. Both sexual partners should wash before intercourse. Urinate right after intercourse to flush out the bladder. Wear cotton underwear and cotton-lined panty hose; avoid tight-fitting pants. If you are on control pills and are having frequent bladder infections, discuss with your doctor. Follow Up: Return to this facility or see your doctor if ALL symptoms are not gone after three days of treatment. Get Prompt Medical Attention if any of the following occur: Fever of 100.4F (38C) or higher, or as directed by your healthcare provider No improvement by the third day of treatment Increasing back or abdominal pain Repeated vomiting; unable to keep medicine down Weakness, dizziness or fainting Vaginal discharge Pain, redness or swelling in the labia (outer vaginal area) STD, (Cervicitis) [Female, Chlamydia Vs Gc: Treated] You have an infection in the cervix (the opening to the uterus). This is due to an infection with a bacteria (either "Chlamydia" or "Gonorrhea"). This is a sexually transmitted disease (STD) and is highly contagious. It is passed by sexual contact with an infected partner. Women with an infection in the cervix, may have no symptoms or only mild symptoms early in the disease. Therefore, it is possible to pass this infection without knowing you have it. When symptoms do occur, they usually appear 2 days to 3 weeks after exposure. There may be a vaginal discharge. There may also be pain or burning when passing urine. If the infection spreads to the Fallopian tubes it causes pelvic inflammatory disease ("PID"). PID causes symptoms of lower abdominal pain and fever. If not treated, Chlamydia or Gonorrhea can cause infertility (unable to have children) by scarring the Fallopian tubes. PID also increases the risk of ectopic in the future. This infection can be treated and cured. A culture test may be taken to confirm the diagnosis. Treatment is with antibiotic medicine. Home Care: Your sexual partner must be treated at the same time, even if there are no symptoms. Your partner should contact their own doctor or go to an urgent care clinic or the Public Health Department to be examined and treated. Avoid sexual activity until both you and your partner have completed all antibiotic medicine, and you have been told by your doctor that you are no longer contagious. Take all medicines until they are finished; otherwise, symptoms may recur. Learn about safe sex practices and use these in the future. The safest sex is with a partner who has tested negative and only has sex with you. Condoms offer protection from spreading some sexually transmitted diseases including Gonorrhea, Chlamydia and HIV, but are not a guarantee. Follow Up with your doctor or as advised by our staff. If a culture test was taken, you may call us in three days for the results, or as directed. Another culture test should be taken 4-6 weeks after treatment to be sure the infection has cleared. Follow up with your doctor or the Public Health Department for complete STD screening, including HIV testing. For more information about STD's, contact the National STD Hotline: . Get Prompt Medical Attention if any of the following occur: No improvement after three days of treatment New or increasing lower abdominal pain or back pain Unexpected vaginal bleeding Weakness, dizziness or fainting Repeated vomiting Inability to urinate due to pain Rash or joint pain Painful open sores around the outer vagina Enlarged painful lymph nodes (lumps) in the groin Nitrofurantoin, Nitrofurantoin, Macrocrystalline Oral capsule What is this medicine? NITROFURANTOIN (giovanni ap gallegos AN toyn) is an antibiotic. It is used to treat urinary tract infections. How should I use this medicine? Take this medicine by mouth with a glass of water. Follow the directions on the prescription label. Take this medicine with food or milk. Take your doses at regular intervals. Do not take your medicine more often than directed. Do not stop taking except on your doctor's advice. Talk to your map and chart mounter regarding the use of this medicine in children. While this drug may be prescribed for selected conditions, precautions do apply. What side effects may I notice from receiving this medicine? Side effects that you should report to your doctor or health adult care provider as soon as possible: allergic reactions like skin rash or hives, swelling of the face, lips, or tongue chest pain cough difficulty breathing dizziness, drowsiness fever or infection joint aches or pains pale or blue-tinted skin redness, blistering, peeling or loosening of the skin, including inside the mouth tingling, burning, pain, or numbness in hands or feet unusual bleeding or bruising unusually weak or tired yellowing of eyes or skin Side effects that usually do not require medical attention (report to your doctor or health adult care provider if they continue or are bothersome): dark urine diarrhea headache loss of appetite nausea or vomiting temporary hair loss What may interact with this medicine? antacids containing magnesium trisilicate probenecid quinolone antibiotics like ciprofloxacin, lomefloxacin, norfloxacin and ofloxacin sulfinpyrazone What if I miss a dose? If you miss a dose, take it as soon as you can. If it is almost time for your next dose, take only that dose. Do not take double or extra doses. Where should I keep my medicine? Keep out of the reach of children. Store at room temperature between 15 and 30 degrees C (59 and 86 degrees F). Protect from light. Throw away any unused medicine after the expiration date. What should I tell my health care provider before I take this medicine? They need to know if you have any of these conditions: anemia diabetes luaimun-[id number]-[id number] dehydrogenase deficiency kidney disease liver disease lung disease other chronic illness an unusual or allergic reaction to nitrofurantoin, other antibiotics, other medicines, foods, dyes or preservatives or trying to get breast-feeding What should I watch for while using this medicine? Tell your doctor or health adult care provider if your symptoms do not improve or if you get new symptoms. Drink several glasses of water a day. If you are taking this medicine for a long time, visit your doctor for regular checks on your progress. If you are diabetic, you may get a false positive result for sugar in your urine with certain brands of urine tests. Check with your doctor. You have been given the following additional information: Bladder Infection, Female (Adult) Cervicitis (STD), Treated Nitrofurantoin, Nitrofurantoin, Macrocrystalline Oral capsule (Electronically signed by Estrella Dejesus P.A.-C 08/14/2016 22:50)
--- NOTE | 2016-08-14 23:07 | ED MAR SUMMARY ---
..... Medication Administration Record [facility] [address] [place] [address] Patient: JULI REN Visit ID: [id number] 25y, F Weight: 58.9 kg Height/Length: 64 in BMI: 22.3 ALLERGIES: No Known Drug Allergy Given 08/14/2016 Shira Sheriff, Medication Administered: CEFTRIAXONE [IM], Dose: 250 mg IM, With: 1% LIDOCAINE 2.1 mL. Medication Ordered: Ceftriaxone IM 250 mg (NOW). Given :08/14/2016 Shira Sheriff, Medication Administered: AZITHROMYCIN [PO], Dose: 500 mg Capsules PO. Medication Ordered: Azithromycin PO 500 mg (NOW). Given :08/14/2016 Shira Sheriff, Medication Administered: MACROBID [PO], Dose: 100 mg Capsules PO. Medication Ordered: Macrobid PO 100 mg (NOW).
--- NOTE | 2016-08-14 23:07 | ED MED RECONCILIATION SUMMARY ---
Patient: JULI REN Medication Reconciliation Report [facility] VisitID: [id number] [place] [address] 25y, F Registration Date/Time: 08/14/2016 Weight: 58.9 kg Height/Length: 64 in. BMI: 22.3 ALLERGIES: No Known Drug Allergy The patient's Home Medications are listed below: NONE. The source(s) of the original Home Medication information: patient The following Medications were given to the patient in the Emergency Department: Ceftriaxone [IM] IM 250 mg with 1% Lidocaine 2.1 mL, administered: 08/14/2016 10:25:00 PM Azithromycin [PO] PO 500 mg, administered: 08/14/2016 10:25:00 PM Macrobid [PO] PO 100 mg, administered: 08/14/2016 10:26:00 PM The following Medications were prescribed to the patient: Macrobid 100 mg: take 1 capsule orally every 12 hours. No refill. Substitution is permissible. -- Estrella Dejesus PNellANell-C
--- NOTE | 2016-08-14 23:07 | ED MED RECONCILIATION SUMMARY ---
Patient: JULI REN Medication Reconciliation Report [facility] VisitID: [id number] [place] [address] 25y, F Registration Date/Time: 08/14/2016 Weight: 58.9 kg Height/Length: 64 in. BMI: 22.3 ALLERGIES: No Known Drug Allergy The patient's Home Medications are listed below: NONE. The source(s) of the original Home Medication information: patient The following Medications were given to the patient in the Emergency Department: Ceftriaxone [IM] IM 250 mg with 1% Lidocaine 2.1 mL, administered: 08/14/2016 10:25:00 PM Azithromycin [PO] PO 500 mg, administered: 08/14/2016 10:25:00 PM Macrobid [PO] PO 100 mg, administered: 08/14/2016 10:26:00 PM The following Medications were prescribed to the patient: Macrobid 100 mg: take 1 capsule orally every 12 hours. No refill. Substitution is permissible. -- Estrella Dejesus PNellANell-C
--- NOTE | 2016-08-14 23:07 | ED MAR SUMMARY ---
..... Medication Administration Record [facility] [address] [place] [address] Patient: JULI REN Visit ID: [id number] 25y, F Weight: 58.9 kg Height/Length: 64 in BMI: 22.3 ALLERGIES: No Known Drug Allergy Given 08/14/2016 Shira Sheriff, Medication Administered: CEFTRIAXONE [IM], Dose: 250 mg IM, With: 1% LIDOCAINE 2.1 mL. Medication Ordered: Ceftriaxone IM 250 mg (NOW). Given :08/14/2016 Shira Sheriff, Medication Administered: AZITHROMYCIN [PO], Dose: 500 mg Capsules PO. Medication Ordered: Azithromycin PO 500 mg (NOW). Given :08/14/2016 Shira Sheriff, Medication Administered: MACROBID [PO], Dose: 100 mg Capsules PO. Medication Ordered: Macrobid PO 100 mg (NOW).
== END 2016-08-14 22:35 | disposition home or self-care (01) ==
LOC: ED SRH 21:14
DX: N30.00 Acute cystitis without hematuria (principal); A56.8 Sexually transmitted chlamydial infection of other sites; A54.9 Gonococcal infection, unspecified; Z72.0 Tobacco use
CPT/HCPCS: 90004; 90148; 90469; 93070